=== PATIENT | female | born 1960 | race Caucasian/White ===

== ENCOUNTER 2019-07-14 01:08 | Emergency (ER) | payer OTHER ==
[~2019-07-14] VITALS: Ht 157.5 cm; Wt 56.7 kg
[2019-07-14 01:29] LABS: BASOPHILS % (AUTO) 0 % (0-10); EOSINOPHILS % (AUTO) 1 % (0-10); HEMATOCRIT 43 % (35-52); HEMOGLOBIN 14.5 G/DL (11.5-16.0); LYMPHOCYTES % (AUTO) 24 % (12-44); MEAN CORPUSCULAR HEMOGLOBIN 31 PG (25-34); MEAN CORPUSCULAR HGB CONC 34 G/DL (32-36); MEAN CORPUSCULAR VOLUME 91 FL (80-99); MEAN PLATELET VOLUME 8.8 FL (7.4-10.4); MONOCYTES % (AUTO) 9 % (0-12); NEUTROPHILS # (AUTO) 6.4 X 10^3 (1.8-7.8); NEUTROPHILS % (AUTO) 66 % (42-75); PLATELET COUNT 264 10^3/uL (130-400); RED CELL DISTRIBUTION WIDTH 12.9 % (10.0-14.5); WHITE BLOOD COUNT 9.7 10^3/uL (4.3-11.0)
--- NOTE | 2019-07-14 01:29 | ED General ---
General Stated Complaint: ABD PAIN History of Present Illness Date Seen by Provider: Jul 14, 2019 Time Seen by Provider: 01:00 Initial Comments Patient is a 59-year-old female who presents to the emergency department this evening complaining of lower abdominal pain and lower GI bleeding. She had onset of symptoms at 5:00 PM. Since then, she has had several episodes of bright red blood per rectum and has had persistent crampy lower abdominal pain. The pain is worse just before she has a bowel movement and then improves afterward. No nausea or vomiting. No prior history of similar symptoms. Her only surgical history is for bowel resection for polyp removal. No fever or chills. The patient has been riding on a motorcycle over the last 2 days traveling from [facility] on her way to [place] to visit family. Allergies and Home Medications Allergies Coded Allergies: morphine (Verified Allergy, Unknown, 07/14/19) Home Medications Ciprofloxacin HCl 500 Mg Tablet, 500 MG PO BID Prescribed by: GOVIND PATRICK on 07/14/19 0306 Metronidazole 500 Mg Tablet, 500 MG PO TID Prescribed by: GOVIND PATRICK on 07/14/19 0306 Patient Home Medication List Home Medication List Reviewed: Yes Review of Systems Review of Systems Constitutional: no symptoms reported EENTM: no symptoms reported Respiratory: no symptoms reported Cardiovascular: no symptoms reported Gastrointestinal: abdominal pain (LLQ) Genitourinary: no symptoms reported Musculoskeletal: no symptoms reported Skin: no symptoms reported Hematologic/Lymphatic: No Symptoms Reported Physical Exam Vital Signs Vital Signs - First Documented 07/14/19 01:15 Temp 97.4 Pulse 82 Resp 18 B/P (MAP) 132/85 (101) Pulse Ox 99 O2 Delivery Room Air Capillary Refill : Height, Weight, BMI Height: '" Weight: lbs. oz. kg; BMI Method: General Appearance: No Apparent Distress, WD/WN HEENT: PERRL/EOMI, TMs Normal, Normal ENT Inspection Neck: Full Range of Motion, Normal Inspection, Supple Respiratory: Chest Non Tender, Lungs Clear Cardiovascular: Regular Rate, Rhythm, No Edema Gastrointestinal: Normal Bowel Sounds, Soft, Other (tender to palpation over the lower right and left quadrants. No guarding or rebound is present) Extremity: Normal Capillary Refill Neurologic/Psychiatric: Alert, Oriented x3 Skin: Normal Color, Warm/Dry Progress/Results/Core Measures Suspected Sepsis SIRS Temperature: Pulse: Respiratory Rate: Laboratory Tests 07/14/19 01:20: White Blood Count 9.7 Blood Pressure / Mean: Laboratory Tests 07/14/19 01:20: Creatinine 0.62, INR Comment 1.0, Platelet Count 264, Total Bilirubin 0.4 Results/Orders Lab Results Laboratory Tests Test 07/14/19 01:20 Range/Units White Blood Count 9.7 4.3-11.0 10^3/uL Red Blood Count 4.72 4.35-5.85 10^6/uL Hemoglobin 14.5 11.5-16.0 G/DL Hematocrit 43 35-52 % Mean Corpuscular Volume 91 80-99 FL Mean Corpuscular Hemoglobin 31 25-34 PG Mean Corpuscular Hemoglobin Concent 34 32-36 G/DL Red Cell Distribution Width 12.9 10.0-14.5 % Platelet Count 264 130-400 10^3/uL Mean Platelet Volume 8.8 7.4-10.4 FL Neutrophils (%) (Auto) 66 42-75 % Lymphocytes (%) (Auto) 24 12-44 % Monocytes (%) (Auto) 9 0-12 % Eosinophils (%) (Auto) 1 0-10 % Basophils (%) (Auto) 0 0-10 % Neutrophils # (Auto) 6.4 1.8-7.8 X 10^3 Lymphocytes # (Auto) 2.3 1.0-4.0 X 10^3 Monocytes # (Auto) 0.8 0.0-1.0 X 10^3 Eosinophils # (Auto) 0.1 0.0-0.3 10^3/uL Basophils # (Auto) 0.0 0.0-0.1 10^3/uL Prothrombin Time 13.0 12.2-14.7 SEC INR Comment 1.0 0.8-1.4 Activated Partial Thromboplast Time 28 24-35 SEC Sodium Level 141 135-145 MMOL/L Potassium Level 4.0 3.6-5.0 MMOL/L Chloride Level 103 98-107 MMOL/L Carbon Dioxide Level 26 21-32 MMOL/L Anion Gap 12 5-14 MMOL/L Blood Urea Nitrogen 18 7-18 MG/DL Creatinine 0.62 0.60-1.30 MG/DL Estimat Glomerular Filtration Rate > 60 BUN/Creatinine Ratio 29 Glucose Level 111 H 70-105 MG/DL Calcium Level 9.6 8.5-10.1 MG/DL Corrected Calcium 9.5 8.5-10.1 MG/DL Total Bilirubin 0.4 0.1-1.0 MG/DL Aspartate Amino Transf (AST/SGOT) 26 5-34 U/L Alanine Aminotransferase (ALT/SGPT) 25 0-55 U/L Alkaline Phosphatase 97 40-136 U/L Total Protein 6.5 6.4-8.2 GM/DL Albumin 4.1 3.2-4.5 GM/DL My Orders Orders - GOVIND PATRICK DO Ed Iv/Invasive Line Start (07/14/19 01:11) Cbc With Automated Diff (07/14/19 01:11) Comprehensive Metabolic Panel (07/14/19 01:11) Protime With Inr (07/14/19 01:11) Partial Thromboplastin Time (07/14/19 01:11) Urinalysis (07/14/19 01:11) Ct Abdomen/Pelvis W (07/14/19 01:11) Iohexol Injection (Omnipaque 350 Mg/Ml 1 (07/14/19 01:45) Received Contrast (Hold Metformin- Contr (07/14/19 01:45) Sodium Chloride Flush (Catheter Flush Sy (07/14/19 01:45) Ns (Ivpb) (Sodium Chloride 0.9% Ivpb Bag (07/14/19 01:45) Metronidazole Tablet (Flagyl Tablet) (07/14/19 03:15) Ciprofloxacin Tablet (Cipro Tablet) (07/14/19 03:08) Acetaminophen Tablet (Tylenol Tablet) (07/14/19 03:30) Medications Given in ED Current Medications Medications Dose Ordered Sig/Mabel Route Start Time Stop Time Status Last Admin Dose Admin Iohexol 100 ml ONCE ONCE IV 07/14/19 01:45 07/14/19 01:48 DC 07/14/19 02:14 100 ML Sodium Chloride 10 ml NEEDED PRN IV 07/14/19 01:45 07/14/19 02:15 10 ML Sodium Chloride 100 ml ONCE ONCE IV 07/14/19 01:45 07/14/19 01:48 DC 07/14/19 02:14 40 ML Vital Signs/I&O 07/14/19 01:15 Temp 97.4 Pulse 82 Resp 18 B/P (MAP) 132/85 (101) Pulse Ox 99 O2 Delivery Room Air Capillary Refill : Progress Note : Time: 01:29 Progress Note Patient is seen and examined. Clinically, no signs of acute anemia. Given her abdominal pain, labs and CT scan are ordered. Patient is offered pain medication but declines the desire for strong pain medications at this time. 03:15: All results are reviewed and discussed with the patient. CT scan is confirming for suspected diagnosis of colitis. In the ER, patient is given Tylenol for pain. She is given Cipro and Flagyl. She is prescribed the same medication use at home. We'll discharge from the ER this evening. She is not anemic and there is no indication for an acute admission to the hospital. Return precautions were discussed and she was advised to seek additional care if her symptoms do not improve or if her symptoms worsened in the next 48 hours. Departure Impression Primary Impression: Infectious colitis Additional Impression: Lower GI bleed Disposition: HOME, SELF-CARE Condition: Stable Departure-Patient Inst. Referrals: NO,LOCAL PHYSICIAN (PCP/Family) Primary Care Physician Scripts Metronidazole (Flagyl) 500 Mg Tablet 500 MG PO TID for 14 Days, #42 TAB Prov: GOVIND PATRICK DO 07/14/19 Ciprofloxacin HCl (Ciprofloxacin HCl) 500 Mg Tablet 500 MG PO BID, #14 TAB Prov: GOVIND PATRICK DO 07/14/19 GOVIND PATRICK DO Jul 14, 2019 01:29
[2019-07-14 01:30] LABS: EOSINOPHILS # (AUTO) 0.1 10^3/uL (0.0-0.3); LYMPHOCYTES # (AUTO) 2.3 X 10^3 (1.0-4.0); MONOCYTES # (AUTO) 0.8 X 10^3 (0.0-1.0)
[2019-07-14] MEDS ORDERED: HOLD METFORMIN - RECEIVED CONTRAST 20 ML VIAL IV SCH (01:45)
[2019-07-14] MEDS ORDERED: CATHETER FLUSH 10 ML SYR IV PRN (01:45)
[2019-07-14] MEDS ORDERED: NS 100 ML (IVPB) BAG IV ONE (01:45)
[2019-07-14] MEDS ORDERED: IOHEXOL 350 MG/ML 100 ML (OMNIPAQUE 350) VIAL IV ONE (01:45)
[2019-07-14 01:48] LABS: CARBON DIOXIDE 26 MMOL/L (21-32); CHLORIDE 103 MMOL/L (98-107); SODIUM 141 MMOL/L (135-145)
[2019-07-14 01:49] LABS: ALANINE AMINOTRANSFERASE 25 U/L (0-55); ALBUMIN 4.1 GM/DL (3.2-4.5); ALKALINE PHOSPHATASE 97 U/L (40-136); BILIRUBIN,TOTAL 0.4 MG/DL (0.1-1.0); BUN/CREATININE RATIO 29; CALCIUM 9.6 MG/DL (8.5-10.1); CREATININE SERUM 0.62 MG/DL (0.60-1.30); GFR ESTIMATED > 60; GLUCOSE 111 MG/DL (70-105); TOTAL PROTEIN 6.5 GM/DL (6.4-8.2)
[2019-07-14] MEDS ORDERED: CIPR500T4 PO (03:06)
[2019-07-14] MEDS ORDERED: METR500T PO (03:06)
[2019-07-14] MEDS ORDERED: CIPROFLOXACIN 500 MG (CIPRO) TABLET PO STA (03:08)
[2019-07-14] MEDS ORDERED: metroNIDAZOLE 500 MG (FLAGYL) TAB PO ONE (03:15)
[2019-07-14] MEDS ORDERED: ACETAMINOPHEN 500 MG TAB (TYLENOL) PO ONE (03:30)
[2019-07-14 03:31] VITALS: BP 112/68
--- NOTE | 2019-07-14 07:09 | Diagnostic Imaging Report ---
PROCEDURE: CT abdomen and pelvis with contrast. TECHNIQUE: Multiple contiguous axial images were obtained through the abdomen and pelvis after administration of intravenous contrast. Auto Exposure Controls were utilized during the CT exam to meet ALARA standards for radiation dose reduction. INDICATION: Pain, diarrhea with bright red blood per rectum. FINDINGS: There is edematous thickening of the turner of the large bowel most pronounced at the distal transverse and descending colon through the sigmoid. Findings are consistent with nonspecific colitis and includes infectious and pseudomembranous disease as differential considerations of the etiology. The aorta is patent. The celiac, the SMA and the MARY JANE as well as those vessels primary branches were all patent. No arterial occlusion. In addition to infectious disease or pseudomembrane, nonocclusive ischemic colitis in the left colon in a female patient of this age should also be considered. Uterus, adnexa, and urinary bladder had an unremarkable appearance. Urinary tracts unobstructed. There is right hepatic lobe cyst. The spleen, adrenals, pancreas unremarkable. The gallbladder negative. IMPRESSION: Predominately left-sided colitis. Considerations would include infectious or inflammatory disease or nonocclusive ischemic disease. No arterial pathology is identified. No obstruction or perforation. No abscess or fluid collection. No other acute appearing abnormality. Dictated by: Dictated on workstation # [id number]
== END 2019-07-14 03:30 | disposition home or self-care (01) ==
LOC: ER FS 01:10
DX: A09 Infectious gastroenteritis and colitis, unspecified (principal); K92.2 Gastrointestinal hemorrhage, unspecified; Z88.5 Allergy status to narcotic agent; Z86.010 Personal history of colon polyps
CPT/HCPCS: 36415; 74177; 80053; 85025; 85610; 85730